=== PATIENT | female | born 2000 ===

== ENCOUNTER 2021-05-10 12:33 | Inpatient (IN) | payer MEDICAID ==
[~2021-05-10] VITALS: Ht 170.2 cm; Wt 81.0 kg
[2021-05-10] MEDS ORDERED: ACETAMINOPHEN 325 MG TABLET PO PRN (13:00)
[2021-05-10] MEDS ORDERED: DOCUSATE 100 MG CAPSULE PO PRN (13:00)
[2021-05-10] MEDS ORDERED: BISACODYL 10 MG SUPP PR PRN (13:00)
[2021-05-10] MEDS ORDERED: ONDANSETRON ODT 4 MG PO PRN (13:00)
[2021-05-10] MEDS ORDERED: POLYETHYLENE GLYCOL 17 GM PACKET PO PRN (13:00)
[2021-05-10] MEDS ORDERED: PLEASE ENTER HEIGHT AND WEIGHT AND ALLERGIES MC SCH (13:30)
[2021-05-10 15:25] VITALS: BP 126/83
[2021-05-10] MEDS ORDERED: hydrOXyzine 10 MG/5 ML ORAL SOL PO PRN (16:30)
[2021-05-10 16:50] LABS: ANION GAP 6 mmol/L (5-15); CALCIUM 8.8 mg/dL (8.5-10.1); CHLORIDE 106 mmol/L (98-107); CREATININE 0.64 mg/dL (0.55-1.02)
[2021-05-10] MEDS ORDERED: TRAZ50TA66 PO (16:55)
[2021-05-10] MEDS ORDERED: GABA-826 PO (16:57)
[2021-05-10] MEDS ORDERED: SERT100T32 PO (16:58)
[2021-05-10] MEDS ORDERED: LAMO100T8 PO (16:59)
[2021-05-10] MEDS ORDERED: PRAZ1CAP2 PO (17:01)
[2021-05-10] MEDS ORDERED: HYDR-2995 PO (17:01)
[2021-05-10 19:36] VITALS: BP 111/73
[2021-05-10] MEDS ORDERED: PRAZOSIN 2 MG CAPSULE PO SCH (21:00)
[2021-05-10 21:21] LABS: MICROSCOPIC NOT IND
[2021-05-10] MEDS: LAMOTRIGINE 25 MG TABLET PO SCH (21:32)
[2021-05-10] MEDS: TRAZODONE 50MG TABLET PO SCH (22:55)
[2021-05-11 06:47] LABS: BASOPHILS % (AUTO) 0 % (0-1); EOSINOPHILS % (AUTO) 1 % (1-7); LYMPHOCYTES % (AUTO) 45 % (22-44); MEAN CORPUSCULAR HEMOGLOBIN 30.4 pg (27.0-34.8); MEAN CORPUSCULAR HGB CONC 34.1 g/dL (32.4-35.8); MEAN PLATELET VOLUME 8.3 fL (7.4-10.4); MONOCYTES % (AUTO) 8 % (2-9); NEUTROPHILS % (AUTO) 45 % (42-75); PLATELET COUNT 211 x10^3/uL (130-400); RED BLOOD COUNT 4.76 x10^6/uL (3.82-5.3); RED CELL DISTRIBUTION WIDTH 12.8 % (9.6-15.2)
[2021-05-11 07:11] LABS: CHOL/HDL RATIO 2.5; LDL/HDL RATIO 1.2 (0.5-3.0)
[2021-05-11 07:38] VITALS: BP 92/57
[2021-05-11] MEDS: NICOTINE 14MG/24 HR PATCH.TD24 TD SCH (09:49)
[2021-05-11] MEDS: SERTRALINE 50MG TABLET PO SCH (09:51)
[2021-05-11] MEDS: LAMOTRIGINE 25 MG TABLET PO SCH ×2 (09:51→21:15)
[2021-05-11 20:08] VITALS: BP 110/76
[2021-05-11] MEDS ORDERED: MELATONIN 5 MG TABLET PO SCH (21:00)
[2021-05-11] MEDS ORDERED: PRAZOSIN 2 MG CAPSULE PO SCH (21:00)
[2021-05-11] MEDS: MELATONIN 5 MG TABLET PO SCH (21:15)
[2021-05-11] MEDS: GABAPENTIN 100 MG CAPSULE PO SCH (21:15)
[2021-05-11] MEDS: TRAZODONE 50MG TABLET PO SCH (21:15)
[2021-05-11] MEDS: PRAZOSIN 1 MG CAPSULE PO SCH (21:28)
[2021-05-12 07:45] VITALS: BP 95/61
[2021-05-12 08:37] VITALS: BP 106/73
[2021-05-12] MEDS: LAMOTRIGINE 25 MG TABLET PO SCH ×2 (08:40→21:12)
[2021-05-12] MEDS: NICOTINE 14MG/24 HR PATCH.TD24 TD SCH (08:40)
[2021-05-12] MEDS: GABAPENTIN 100 MG CAPSULE PO SCH ×2 (08:40→21:12)
[2021-05-12] MEDS: SERTRALINE 50MG TABLET PO SCH (08:40)
[2021-05-12] MEDS ORDERED: LAMO25TA9 PO (15:12)
[2021-05-12] MEDS ORDERED: GABA-826 PO ×2 (15:12)
[2021-05-12] MEDS ORDERED: SERT50TA28 PO (15:12)
[2021-05-12] MEDS ORDERED: NICO-486 TD (15:12)
[2021-05-12] MEDS ORDERED: PRAZ1CAP2 PO (15:12)
[2021-05-12] MEDS ORDERED: MELA5TAB14 PO (15:12)
[2021-05-12 18:39] VITALS: BP 102/62
[2021-05-12] MEDS ORDERED: PRAZOSIN 1 MG CAPSULE PO SCH (21:00)
[2021-05-12] MEDS: PRAZOSIN 1 MG CAPSULE PO SCH (21:12)
[2021-05-12] MEDS: MELATONIN 5 MG TABLET PO SCH (21:12)
[2021-05-12] MEDS: TRAZODONE 50MG TABLET PO SCH (21:12)
[2021-05-13 07:53] VITALS: BP 102/65
[2021-05-13] MEDS: SERTRALINE 50MG TABLET PO SCH (08:01)
[2021-05-13] MEDS: LAMOTRIGINE 25 MG TABLET PO SCH (08:01)
[2021-05-13] MEDS: GABAPENTIN 100 MG CAPSULE PO SCH (08:01)
[2021-05-13] MEDS: NICOTINE 14MG/24 HR PATCH.TD24 TD SCH (08:01)
== END 2021-05-13 09:00 | disposition home or self-care (01) | DRG 885 ==
LOC: 3E 13:04
PROVIDERS: ADMIT Psychiatry & Neurology Psychosomatic Medicine; ATTEND Psychiatry & Neurology Psychosomatic Medicine
DX: F31.30 Bipolar disorder, current episode depressed, mild or moderate severity, unspecified (principal); R45.851 Suicidal ideations; F12.10 Cannabis abuse, uncomplicated; F42.9 Obsessive-compulsive disorder, unspecified; F43.10 Post-traumatic stress disorder, unspecified; F60.3 Borderline personality disorder; F90.9 Attention-deficit hyperactivity disorder, unspecified type; G47.00 Insomnia, unspecified; F17.200 Nicotine dependence, unspecified, uncomplicated; G89.29 Other chronic pain; M54.5 Low back pain; Z79.899 Other long term (current) drug therapy; Z72.89 Other problems related to lifestyle
CPT/HCPCS: 36415; 71045; 80048; 80061; 81003; 84439; 84443; 85025; 93005; Q0177